=== PATIENT | female | born 1965 | race Caucasian/White ===

== ENCOUNTER 2019-08-18 08:24 | Emergency (ER) | payer BC, OTHER ==
--- NOTE | 2019-08-18 08:36 | EDM.PDOC ---
ED HPI GENERAL MEDICAL PROBLEM - General Stated Complaint: PSYCH EVAL Time Seen by Provider: 08/18/19 08:34 Source of Information: Reports: Patient - History of Present Illness INITIAL COMMENTS - FREE TEXT/NARRATIVE: HISTORY AND PHYSICAL: History of present illness: [Patient presents with suicidal ideation and plan to take her pills, she does have history of Parkinson's disease and anxiety/depression is on carbidopa levodopa as well's peroxide teen 40 mg] She states that she is a heavy drinker and gambler she was drinking last night she states she does not drink every day, she admits to drinking 6 Coors light drinks daily, eyes previous alcohol withdrawal symptoms, dates she does have periods where she does not have any alcohol for 4 to 5 days. Fever nausea vomiting chills sweats no chest pain shortness of breath headache dizziness palpitation no bowel or urine symptoms denies ingestion of her chronic medications at this time Review of systems: As per history of present illness and below otherwise all systems reviewed and negative. Past medical history: As per history of present illness and as reviewed below otherwise noncontributory. Surgical history: As per history of present illness and as reviewed below otherwise noncontributory. Social history: No reported history of drug or alcohol abuse. Family history: As per history of present illness and as reviewed below otherwise noncontributory. Physical exam: HEENT: Atraumatic, normocephalic, pupils reactive, negative for conjunctival pallor or scleral icterus, mucous membranes moist, throat clear, neck supple, nontender, trachea midline. Lungs: Clear to auscultation, breath sounds equal bilaterally, chest nontender. Heart: S1S2, regular, negative for clicks, rubs, or JVD. Abdomen: Soft, nondistended, nontender. Negative for masses or hepatosplenomegaly. Negative for costovertebral tenderness. Pelvis: Stable nontender. Genitourinary: Deferred. Rectal: Deferred. Extremities: Atraumatic, negative for cords or calf pain. Neurovascular unremarkable. Neuro: Awake, alert, oriented. Cranial nerves II through XII unremarkable. Cerebellum unremarkable. Motor and sensory unremarkable throughout. Exam nonfocal. Diagnostics: [BC CMP UA troponin drug screen alcohol level acetaminophen salicylate level TSH ] Therapeutics: ativan 2mg IV normalk saline ] Impression: [Suicidal ideation with plan chronic hx baseline mood disorder ] Definitive disposition and diagnosis as appropriate pending reevaluation and review of above. 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: , 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 (See Below) Other NURSING ATTENDANT History: tumor removal on ovary Musculoskeletal History: Reports: None Neurological History: Reports: None Psychiatric History: Reports: None Endocrine/Metabolic History: Reports: None Dermatologic History: Reports: None - Infectious Disease History Infectious Disease History: Reports: None - Past Surgical History Female Surgical History: Reports: Hysterectomy Social & Family History - Family History Family Medical History: Noncontributory ED ROS GENERAL - Review of Systems Review Of Systems: See Below ED EXAM, GENERAL - Physical Exam Exam: See Below Course - Vital Signs Last Recorded V/S: Last Vital Signs Temp 98.9 F 08/18/19 08:24 Pulse 103 H 08/18/19 10:19 Resp 16 08/18/19 10:19 BP 146/92 H 08/18/19 10:19 Pulse Ox 91 L 08/18/19 10:19 - Orders/Labs/Meds Orders: Active Orders 24 hr Category Date Time Status EKG Documentation Completion [RC] STAT Care 08/18/19 08:33 Active RT Aerosol Therapy [RC] ASDIRECTED Care 08/18/19 09:14 Active Labs: Laboratory Tests 08/18/19 08/18/19 08/18/19 Range/Units 08:36 08:36 08:45 WBC 5.94 (4.0-11.0) K/uL RBC 5.07 (4.30-5.90) M/uL Hgb 15.0 (12.0-16.0) g/dL Hct 43.5 (36.0-46.0) % MCV 85.8 (80.0-98.0) fL MCH 29.6 (27.0-32.0) pg MCHC 34.5 (31.0-37.0) g/dL RDW Std Deviation 44.0 (28.0-62.0) fl RDW Coeff of Kennedy 14 (11.0-15.0) % Plt Count 229 (150-400) K/uL MPV 9.50 (7.40-12.00) fL Neut % (Auto) 75.4 (48.0-80.0) % Lymph % (Auto) 17.7 (16.0-40.0) % [place] % (Auto) 4.5 (0.0-15.0) % Eos % (Auto) 2.2 (0.0-7.0) % Baso % (Auto) 0.2 (0.0-1.5) % Neut # (Auto) 4.5 (1.4-5.7) K/uL Lymph # (Auto) 1.1 (0.6-2.4) K/uL [place] # (Auto) 0.3 (0.0-0.8) K/uL Eos # (Auto) 0.1 (0.0-0.7) K/uL Baso # (Auto) 0.0 (0.0-0.1) K/uL Nucleated RBC % 0.0 /100WBC Nucleated RBCs # 0 K/uL INR Sodium (136-145) mmol/L Potassium (3.5-5.1) mmol/L Chloride (98-107) mmol/L Carbon Dioxide (21.0-32.0) mmol/L BUN (7.0-18.0) mg/dL Creatinine (0.6-1.0) mg/dL Est Cr Clr Drug Dosing Estimated GFR (MDRD) ml/min Glucose (74-106) mg/dL Calcium (8.5-10.1) mg/dL Total Bilirubin (0.2-1.0) mg/dL AST (15-37) IU/L ALT (14-63) IU/L Alkaline Phosphatase (46-116) U/L Troponin I (0.000-0.056) ng/mL Total Protein (6.4-8.2) g/dL Albumin (3.4-5.0) g/dL Globulin (2.6-4.0) g/dL Albumin/Globulin Ratio (0.9-1.6) TSH 3rd Generation (0.36-3.74) uIU/mL Urine Color YELLOW Urine Appearance HAZY Urine pH 5.0 (5.0-8.0) Ur Specific [place] 1.020 (1.001-1.035) Urine Protein NEGATIVE (NEGATIVE) mg/dL Urine Glucose (UA) NEGATIVE (NEGATIVE) mg/dL Urine Ketones NEGATIVE (NEGATIVE) mg/dL Urine Occult Blood TRACE-INTACT H (NEGATIVE) Urine Nitrite NEGATIVE (NEGATIVE) Urine Bilirubin NEGATIVE (NEGATIVE) Urine Urobilinogen 0.2 (<2.0) EU/dL Ur Leukocyte Esterase NEGATIVE (NEGATIVE) Urine RBC 0-1 (0-2/HPF) Urine WBC 0-1 (0-5/HPF) Ur Epithelial Cells FEW (NONE-FEW) Urine Bacteria FEW (NEGATIVE) Salicylates (0-20) mg/dL Urine Opiates Screen NEGATIVE (NEGATIVE) Ur Oxycodone Screen NEGATIVE (NEGATIVE) Urine Methadone Screen NEGATIVE (NEGATIVE) Acetaminophen ug/mL Ur Barbiturates Screen NEGATIVE (NEGATIVE) Ur Phencyclidine Scrn NEGATIVE (NEGATIVE) Ur Amphetamine Screen NEGATIVE (NEGATIVE) U Methamphetamines Scrn NEGATIVE (NEGATIVE) U Benzodiazepines Scrn NEGATIVE (NEGATIVE) U Cocaine Metab Screen NEGATIVE (NEGATIVE) U Marijuana (THC) Screen NEGATIVE (NEGATIVE) Ethyl Alcohol mg/dL 08/18/19 08/18/19 Range/Units 08:45 08:45 WBC (4.0-11.0) K/uL RBC (4.30-5.90) M/uL Hgb (12.0-16.0) g/dL Hct (36.0-46.0) % MCV (80.0-98.0) fL MCH (27.0-32.0) pg MCHC (31.0-37.0) g/dL RDW Std Deviation (28.0-62.0) fl RDW Coeff of Kennedy (11.0-15.0) % Plt Count (150-400) K/uL MPV (7.40-12.00) fL Neut % (Auto) (48.0-80.0) % Lymph % (Auto) (16.0-40.0) % [place] % (Auto) (0.0-15.0) % Eos % (Auto) (0.0-7.0) % Baso % (Auto) (0.0-1.5) % Neut # (Auto) (1.4-5.7) K/uL Lymph # (Auto) (0.6-2.4) K/uL [place] # (Auto) (0.0-0.8) K/uL Eos # (Auto) (0.0-0.7) K/uL Baso # (Auto) (0.0-0.1) K/uL Nucleated RBC % /100WBC Nucleated RBCs # K/uL INR 0.97 Sodium 141 (136-145) mmol/L Potassium 4.1 (3.5-5.1) mmol/L Chloride 103 (98-107) mmol/L Carbon Dioxide 26.6 (21.0-32.0) mmol/L BUN 9 (7.0-18.0) mg/dL Creatinine 0.8 (0.6-1.0) mg/dL Est Cr Clr Drug Dosing TNP Estimated GFR (MDRD) > 60.0 ml/min Glucose 105 (74-106) mg/dL Calcium 9.8 (8.5-10.1) mg/dL Total Bilirubin 0.4 (0.2-1.0) mg/dL AST 19 (15-37) IU/L ALT 30 (14-63) IU/L Alkaline Phosphatase 83 (46-116) U/L Troponin I < 0.050 (0.000-0.056) ng/mL Total Protein 8.0 (6.4-8.2) g/dL Albumin 4.0 (3.4-5.0) g/dL Globulin 4.0 (2.6-4.0) g/dL Albumin/Globulin Ratio 1.0 (0.9-1.6) TSH 3rd Generation 1.42 (0.36-3.74) uIU/mL Urine Color Urine Appearance Urine pH (5.0-8.0) Ur Specific [place] (1.001-1.035) Urine Protein (NEGATIVE) mg/dL Urine Glucose (UA) (NEGATIVE) mg/dL Urine Ketones (NEGATIVE) mg/dL Urine Occult Blood (NEGATIVE) Urine Nitrite (NEGATIVE) Urine Bilirubin (NEGATIVE) Urine Urobilinogen (<2.0) EU/dL Ur Leukocyte Esterase (NEGATIVE) Urine RBC (0-2/HPF) Urine WBC (0-5/HPF) Ur Epithelial Cells (NONE-FEW) Urine Bacteria (NEGATIVE) Salicylates 1.4 (0-20) mg/dL Urine Opiates Screen (NEGATIVE) Ur Oxycodone Screen (NEGATIVE) Urine Methadone Screen (NEGATIVE) Acetaminophen <2.0 ug/mL Ur Barbiturates Screen (NEGATIVE) Ur Phencyclidine Scrn (NEGATIVE) Ur Amphetamine Screen (NEGATIVE) U Methamphetamines Scrn (NEGATIVE) U Benzodiazepines Scrn (NEGATIVE) U Cocaine Metab Screen (NEGATIVE) U Marijuana (THC) Screen (NEGATIVE) Ethyl Alcohol 46 mg/dL Meds: Medications Discontinued Medications Generic Name Dose Route Start Last Admin Trade Name Freq PRN Reason Stop Dose Admin Albuterol/Ipratropium 3 ml 08/18/19 09:14 08/18/19 09:30 Duoneb 3.0-0.5 Mg/3 Ml NEB 08/18/19 09:15 3 ml ONETIME ONE Administration Lorazepam 2 mg 08/18/19 09:20 08/18/19 09:25 Ativan IVPUSH 08/18/19 09:21 2 mg ONETIME ONE Administration Lorazepam Confirm 08/18/19 09:20 08/18/19 09:25 Ativan Administered 08/18/19 09:21 Not Given Dose 2 mg .ROUTE .STK-MED ONE Departure - Departure Time of Disposition: 10:23 Disposition: DC/Tfer to Psych Hosp/Unit [facility] Condition: Fair Clinical Impression: Depressive disorder - Discharge Information Prescriptions: LORazepam [Lorazepam] 2 mg PO ONETIME #1 tablet Referrals: PCP,Unknown [Primary Care Provider] - Sepsis Event Note - Focused Exam Vital Signs: Vital Signs Temp Pulse Resp BP Pulse Ox 08/18/19 10:19 103 H 16 146/92 H 91 L 08/18/19 09:41 109 H 20 90 L 08/18/19 08:24 98.9 F 109 H 20 149/109 H 98 Date Exam was Performed: 08/18/19 Time Exam was Performed: 10:21 - My Orders Last 24 Hours: My Active Orders 08/18/19 08:33 EKG Documentation Completion [RC] STAT 08/18/19 09:14 RT Aerosol Therapy [RC] ASDIRECTED - Assessment/Plan Last 24 Hours: My Active Orders 08/18/19 08:33 EKG Documentation Completion [RC] STAT 08/18/19 09:14 RT Aerosol Therapy [RC] ASDIRECTED
[2019-08-18] MEDS ORDERED: Albuterol/Ipratropium 3.0-0.5 MG/3 ML Neb Soln NEB ONE (09:14)
[2019-08-18] MEDS ORDERED: LORazepam 2 MG/ML SDV ONE (09:20)
[2019-08-18] MEDS ORDERED: LORazepam 2 MG/ML SDV IVPUSH ONE (09:20)
[2019-08-18 09:34] LABS: ACETAMINOPHEN <2.0 ug/mL; BLOOD UREA NITROGEN,BUN 9 mg/dL (7.0-18.0); CARBON DIOXIDE,CO2 26.6 mmol/L (21.0-32.0); CHLORIDE,CL 103 mmol/L (98-107); GLUCOSE RANDOM 105 mg/dL (74-106); POTASSIUM,K 4.1 mmol/L (3.5-5.1); SODIUM,NA 141 mmol/L (136-145)
--- NOTE | 2019-08-18 09:49 | CR ---
Chest: Frontal view of the chest was obtained. Comparison: Prior chest x-ray of 06/25/14. Heart size and mediastinum are normal. Lungs are clear with no acute parenchymal change. Bony structures are grossly intact. Impression: 1. Nothing acute is appreciated on frontal chest x-ray. Diagnostic code #1 This report was dictated in [place] Standard Time
[2019-08-18 10:21] VITALS: BP 146/92; PULSE 103
== END 2019-08-18 11:45 ==
LOC: MW.ED 08:24
DX: F32.9 Major depressive disorder, single episode, unspecified (principal); G20 Parkinson's disease; F41.9 Anxiety disorder, unspecified; Z79.899 Other long term (current) drug therapy
CPT/HCPCS: 36415; 71045; 80053; 80305; 80320; 80329; 81001; 84443; 84484; 85025; 85610; 93005; 94640; 96374; 99285; J2060; 99283; G0480; J7620-GY

== ENCOUNTER 2020-05-13 21:56 | Emergency (ER) | payer BC ==
[2020-05-13] MEDS ORDERED: Sodium Chloride 0.9% 1,000 ML IV ONE (22:48)
--- NOTE | 2020-05-13 22:51 | EDM.PDOC ---
ED HPI GENERAL MEDICAL PROBLEM - General Chief Complaint: Drug or Alcohol Abuse Stated Complaint: REFER FROM POSION CONTROL Time Seen by Provider: 05/13/20 22:25 - History of Present Illness INITIAL COMMENTS - FREE TEXT/NARRATIVE: HISTORY AND PHYSICAL: History of present illness: This is a 54-year-old female who presents ER today secondary to ingestion of 4 Unisom tablets earlier today to help her sleep. Patient reports that she recently came off quarantine for coronavirus and indulge herself in drinking alcohol today. Patient reports that she started drinking at 2 PM. Patient estimates she drank approximately 6 beers. Patient ports this evening she was found asleep and was unable to get any rest so she took Unisom. Patient reports that she misread the label and thought that she was supposed to take 3 tablets instead of 1 tablet but instead took 4 tablets. Patient's was concerned and sent her to the ED for further evaluation secondary to the ingestion. Patient denies any suicidal ideation or suicide attempt. Patient denies any recent episodes of depression. Patient reports that approximate 1 year ago she was admitted for depression but denies any suicide attempt at that time. Patient reports that she does have a history of anxiety and she is currently on Paxil for her anxiety. Patient has any other symptomatology. Patient has any recent fevers, shakes, chills, nausea, vomiting, diarrhea, dysuria, frequency, urgency, chest pain, shortness of breath, URI symptoms. Review of systems: As per history of present illness and below otherwise all systems reviewed and negative. Past medical history: As per history of present illness and as reviewed below otherwise noncontributory. Surgical history: As per history of present illness and as reviewed below otherwise noncontributory. Social history: No reported history of drug or alcohol abuse. Family history: As per history of present illness and as reviewed below otherwise noncontributory. Physical exam: Constitutional: Patient is oriented to person, place, and time. Appears well- developed and well-nourished. No distress. HEENT: Moist mucous membranes Head: Normocephalic and atraumatic Eyes: Right eye exhibits no discharge. Left eye exhibits no discharge. No scleral icterus Neck: Normal range of motion. No tracheal deviation present. Cardiovascular: Normal rate and regular rhythm. Pulmonary: Effort normal, no respiratory distress. Abdominal: No distention Musculoskeletal: Normal range of motion Neurologic: Alert and oriented to person, place and time. Skin: [place], warm and dry. Psychiatric: Normal mood and affect. Behavior is normal. Judgment and thought content normal. Nursing note and vital signs have been reviewed Diagnostics: CBC, CMP, EKG, alcohol level, salicylate, Tylenol Therapeutics: 1 L normal saline. Assessment and plan: This is a 54-year-old female who presents ER today secondary to accidental ingestion of Unisom. Patient be monitored in the ED. EKG will be obtained as well as labs. I will discuss with the regarding any concerns he has towards suicidality. Discussed case with patient's Dereje at [phone], reports that he has no concerns regarding suicidality. Reports that he and his got into an argument earlier today and he was upset at her because of gambling and drinking issues. He reports that she had lost a substantial amount of money and that she knew that he was upset at her. He reports no concerns regarding patient doing intentional overdose. He reports pill count of only for missing pills and no other concerns regarding other pills or ingestions. Patient has been reports that he brought her into the ER today not secondary to suicidality concerns or depression concerns but because when he spoke to poison control he was concerned regarding respiratory issues that they alerted him to. 12:10 AM: Patient be monitored in the ER for over 2 hours and has remained stable. Patient's respiratory status is unremarkable. Patient's pulse ox is 95% on room air. Patient is easily arousable but resting comfortably in bed. Patient be monitored in the ER for total of 3 hours and will be discharged home with . Reassessment at the time of disposition demonstrates that the patient is in no acute distress. The patient has remained stable throughout the entire ED visit and is without objective evidence for acute process requiring urgent intervention or hospitalization. The patient is stable for discharge, counseling is provided as documented above, discussed symptomatic treatment and specific conditions for return. I have spoken with the patient/caregiver and discussed todays findings, in addition to providing specific details for the plan of care. Questions are answered and there is agreement with the plan. Definitive disposition and diagnosis as appropriate pending reevaluation and review of above. 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 (See Below) 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 CASE RECORDS SUPERVISOR History: tumor removal on ovary Musculoskeletal History: Reports: None Neurological History: Reports: None, Parkinson's Psychiatric History: Reports: None, Anxiety Endocrine/Metabolic History: Reports: None Dermatologic History: Reports: None - Infectious Disease History Infectious Disease History: Reports: Chicken Pox - Past Surgical History Female Surgical History: Reports: Hysterectomy Social & Family History - Family History Family Medical History: Noncontributory - Caffeine Use Caffeine Use: Reports: None - Recreational Drug Use Recreational Drug Use: No ED ROS GENERAL - Review of Systems Review Of Systems: See Below ED EXAM, GENERAL - Physical Exam Exam: See Below #1 Interpretation EKG Interpretation Comments: EKG: Normal sinus rhythm heart rate of [address]-T wave abnormalities Normal axis No evidence of ST elevation [place] As interpreted by ER physician: Martha Course - Vital Signs Last Recorded V/S: Last Vital Signs Temp 99.1 F 05/13/20 22:20 Pulse 67 05/13/20 22:20 Resp 18 05/13/20 22:20 BP 142/84 H 05/13/20 22:20 Pulse Ox 93 L 05/13/20 22:20 - Orders/Labs/Meds Orders: Active Orders 24 hr Category Date Time Status EKG Documentation Completion [RC] AM Care 05/13/20 22:46 Active Saline Lock Insert [OM.PC] Stat Oth 05/13/20 22:48 Ordered Labs: Laboratory Tests 05/13/20 05/13/20 05/13/20 Range/Units 22:45 23:18 23:18 WBC 5.36 (4.0-11.0) K/uL RBC 4.93 (4.30-5.90) M/uL Hgb 14.9 (12.0-16.0) g/dL Hct 43.1 (36.0-46.0) % MCV 87.4 (80.0-98.0) fL MCH 30.2 (27.0-32.0) pg MCHC 34.6 (31.0-37.0) g/dL RDW Std Deviation 44.0 (28.0-62.0) fl RDW Coeff of Kennedy 14 (11.0-15.0) % Plt Count 207 (150-400) K/uL MPV 9.60 (7.40-12.00) fL Neut % (Auto) 53.2 (48.0-80.0) % Lymph % (Auto) 38.8 (16.0-40.0) % [place] % (Auto) 5.4 (0.0-15.0) % Eos % (Auto) 2.2 (0.0-7.0) % Baso % (Auto) 0.4 (0.0-1.5) % Neut # (Auto) 2.9 (1.4-5.7) K/uL Lymph # (Auto) 2.1 (0.6-2.4) K/uL [place] # (Auto) 0.3 (0.0-0.8) K/uL Eos # (Auto) 0.1 (0.0-0.7) K/uL Baso # (Auto) 0.0 (0.0-0.1) K/uL Nucleated RBC % 0.0 /100WBC Nucleated RBCs # 0 K/uL Sodium 144 (136-145) mmol/L Potassium 3.7 (3.5-5.1) mmol/L Chloride 105 (98-107) mmol/L Carbon Dioxide 28.0 (21.0-32.0) mmol/L BUN 10 (7.0-18.0) mg/dL Creatinine 0.7 (0.6-1.0) mg/dL Est Cr Clr Drug Dosing 78.41 mL/min Estimated GFR (MDRD) > 60.0 ml/min Glucose 102 (74-106) mg/dL Calcium 9.5 (8.5-10.1) mg/dL Total Bilirubin 0.3 (0.2-1.0) mg/dL AST 22 (15-37) IU/L ALT 30 (14-63) IU/L Alkaline Phosphatase 76 (46-116) U/L Total Protein 6.8 (6.4-8.2) g/dL Albumin 4.0 (3.4-5.0) g/dL Globulin 2.8 (2.6-4.0) g/dL Albumin/Globulin Ratio 1.4 (0.9-1.6) Salicylates 0.8 (0-20) mg/dL Urine Opiates Screen NEGATIVE (NEGATIVE) Ur Oxycodone Screen NEGATIVE (NEGATIVE) Urine Methadone Screen NEGATIVE (NEGATIVE) Acetaminophen <2.0 ug/mL Ur Barbiturates Screen NEGATIVE (NEGATIVE) Ur Phencyclidine Scrn NEGATIVE (NEGATIVE) Ur Amphetamine Screen NEGATIVE (NEGATIVE) U Methamphetamines Scrn NEGATIVE (NEGATIVE) U Benzodiazepines Scrn NEGATIVE (NEGATIVE) U Cocaine Metab Screen NEGATIVE (NEGATIVE) U Marijuana (THC) Screen NEGATIVE (NEGATIVE) Ethyl Alcohol 133 mg/dL Meds: Medications Discontinued Medications Generic Name Dose Route Start Last Admin Trade Name Freq PRN Reason Stop Dose Admin Sodium Chloride 1,000 mls @ 999 mls/hr 05/13/20 22:48 05/13/20 23:00 Normal Saline IV 05/13/20 23:48 999 mls/hr .Bolus ONE Administration Departure - Departure Time of Disposition: 00:50 Disposition: Home, Self-Care 01 Condition: Good Clinical Impression: Alcohol intoxication, Accidental drug ingestion, Accidental overdose - Discharge Information Instructions: Alcohol Use Disorder, Alcohol Intoxication, [id number], Preventing Poisoning, Adult Referrals: PCP,None [Primary Care Provider] - Forms: ED Department Discharge Additional Instructions: You were seen and evaluated in the ER today secondary to ingesting 4 Unisom tablets. Please take medication only as directed. Your alcohol level was 137. You need to talk to your doctor regarding possible diagnosis of alcohol use disorder. The following information is given to patients seen in the emergency department who are being discharged to home. This information is to outline your options for follow-up care. We provide all patients seen in our emergency department with a follow-up referral. The need for follow-up, as well as the timing and circumstances, are variable depending upon the specifics of your emergency department visit. If you don't have a primary care physician on staff, we will provide you with a referral. We always advise you to contact your personal physician following an emergency department visit to inform them of the circumstance of the visit and for follow-up with them and/or the need for any referrals to a consulting specialist. The emergency department will also refer you to a specialist when appropriate. This referral assures that you have the opportunity for follow-up care with a specialist. All of these measure are taken in an effort to provide you with optimal care, which includes your follow-up. Under all circumstances we always encourage you to contact your private physician who remains a resource for coordinating your care. When calling for follow-up care, please make the office aware that this follow-up is from your recent emergency room visit. If for any reason you are refused follow-up, please contact the [facility] Emergency Department at and asked to speak to the emergency department charge nurse. Sepsis Event Note (ED) - Evaluation Sepsis Screening Result: No Definite Risk - Focused Exam Vital Signs: Vital Signs Temp Pulse Resp BP Pulse Ox 05/13/20 22:20 99.1 F 67 18 142/84 H 93 L - My Orders Last 24 Hours: My Active Orders 05/13/20 22:46 EKG Documentation Completion [RC] AM 05/13/20 22:48 Saline Lock Insert [OM.PC] Stat - Assessment/Plan Last 24 Hours: My Active Orders 05/13/20 22:46 EKG Documentation Completion [RC] AM 05/13/20 22:48 Saline Lock Insert [OM.PC] Stat
[2020-05-13 23:56] LABS: BLOOD UREA NITROGEN,BUN 10 mg/dL (7.0-18.0); CHLORIDE,CL 105 mmol/L (98-107); GLUCOSE RANDOM 102 mg/dL (74-106); POTASSIUM,K 3.7 mmol/L (3.5-5.1); SODIUM,NA 144 mmol/L (136-145)
[2020-05-13 23:57] LABS: ACETAMINOPHEN <2.0 ug/mL
[2020-05-14 01:12] VITALS: BP 127/70; PULSE 76
== END 2020-05-14 00:45 | disposition home or self-care (01) ==
LOC: MW.ED 21:56
DX: T45.0X1A Poisoning by antiallergic and antiemetic drugs, accidental (unintentional), initial encounter (principal); G20 Parkinson's disease; F10.129 Alcohol abuse with intoxication, unspecified; F41.9 Anxiety disorder, unspecified; Z79.899 Other long term (current) drug therapy; Y90.6 Blood alcohol level of 120-199 mg/100 ml
CPT/HCPCS: 36415; 80053; 80305; 80307; 85025; 93005; 99284; J7030; 93010; 99283

== ENCOUNTER 2023-08-27 13:23 | Emergency (ER) | payer BC ==
[2023-08-27] MEDS: Acetaminophen/HYDROcodone 325-10 MG Tab PO ONE (14:33)
[2023-08-27 15:18] VITALS: BP 126/76; PULSE 81
== END 2023-08-27 15:15 | disposition home or self-care (01) ==
LOC: MW.ED 13:23
DX: M79.652 Pain in left thigh (principal); M79.662 Pain in left lower leg; G60.9 Hereditary and idiopathic neuropathy, unspecified; Z90.710 Acquired absence of both cervix and uterus
CPT/HCPCS: 99283; A9270

== ENCOUNTER 2024-08-16 19:18 | Inpatient (IN) | payer BC ==
[2024-08-16 19:39] LABS: BASOPHILS ABSOLUTE AUTO 0.02 K/uL (0.00-0.20); BASOPHILS PERCENT AUTO 0.3 % (0.0-1.0); EOSINOPHILS ABSOLUTE AUTO 0.11 K/uL (0.00-0.45); EOSINOPHILS PERCENT AUTO 1.9 % (0.0-6.0); HEMATOCRIT 44.1 % (37.0-47.0); HEMOGLOBIN 15.2 g/dL (12.0-16.0); IMMATURE GRAN ABSOLUTE AUTO 0.01 K/uL (0.00-0.05); IMMATURE GRAN PERCENT AUTO 0.2 % (0.0-0.4); LYMPHOCYTES ABSOLUTE AUTO 1.54 K/uL (1.00-4.80); LYMPHOCYTES PERCENT AUTO 26.2 % (24.0-44.0); MEAN CORPUSCULAR HEMOGLOBIN 28.7 pg (28.0-32.0); MEAN CORPUSCULAR HGB CONC 34.5 g/dL (32.0-36.0); MEAN CORPUSCULAR VOLUME 83.2 fL (83.0-99.0); MEAN PLATELET VOLUME 10.3 fL (9.4-12.3); MONOCYTES ABSOLUTE AUTO 0.24 K/uL (0.00-0.80); MONOCYTES PERCENT AUTO 4.1 % (0.0-8.0); NEUTROPHILS ABSOLUTE AUTO 3.95 K/uL (1.80-7.70); NEUTROPHILS PERCENT AUTO 67.3 % (41.0-71.0); PLATELET COUNT,PLT 206 K/uL (150-400); WHITE BLOOD CELL COUNT,WBC 5.87 K/uL (3.9-11.3)
[2024-08-16] MEDS: Pantoprazole 40 MG in Sodium Chloride 0.9% 10 ML IVPUSH ONE (20:02)
[2024-08-16] MEDS: Alum Hydrox/Mag Hydrox/Simeth 15 ML, Lidocaine 2% 5 ML PO ONE (20:02)
[2024-08-16] MEDS: Sodium Chloride 0.9% 10 ML Syringe FLUSH PRN (20:04)
[2024-08-16] MEDS: Sodium Chloride 0.9% 2.5 ML Syringe FLUSH PRN (20:04)
[2024-08-16 20:05] LABS: A/G RATIO 1.2 (0.9-1.6); ALANINE AMINOTRANSFERASE,ALT 17 IU/L (14-63); ALBUMIN 4.1 g/dL (3.4-5.0); ALKALINE PHOSPHATASE 94 U/L (46-116); ASPARTATE AMNIOTRANSFERASE,AST 70 IU/L (15-37); BLOOD UREA NITROGEN,BUN 12 mg/dL (7.0-18.0); CALCIUM 9.9 mg/dL (8.5-10.1); CARBON DIOXIDE,CO2 27.4 mmol/L (21.0-32.0); CHLORIDE,CL 104 mmol/L (98-107); GLUCOSE RANDOM 91 mg/dL (74-106); POTASSIUM,K 3.5 mmol/L (3.5-5.1); PROTEIN TOTAL,TP 7.5 g/dL (6.4-8.2); SODIUM,NA 141 mmol/L (136-145)
[2024-08-16 20:06] LABS: ESTIMATED GFR 64 mL/min (>60)
[2024-08-16] MEDS: Iopamidol 755 MG/ML 500 ML Multipack Bottle IVPUSH ONE (21:16)
[2024-08-16] MEDS: Ketorolac 30 MG/ML SDV IVPUSH ONE (21:42)
[2024-08-16] MEDS: Morphine 4 MG/ML Syringe IVPUSH ONE (22:25)
[2024-08-16 23:30] LABS: LIPASE 9751 U/L (16-77)
[2024-08-16] MEDS: HYDROmorphone 1 MG/ML Syringe IVPUSH ONE (23:52)
[2024-08-16] MEDS: Ondansetron 4 MG/2 ML SDV IVPUSH ONE (23:52)
[2024-08-17] MEDS: Sodium Chloride 0.9% 1,000 ML IV SCH (02:01)
[2024-08-17] MEDS: Acetaminophen 325 MG Tab PO PRN (06:28)
[2024-08-17 07:51] LABS: BASOPHILS ABSOLUTE AUTO 0.01 K/uL (0.00-0.20); BASOPHILS PERCENT AUTO 0.2 % (0.0-1.0); EOSINOPHILS ABSOLUTE AUTO 0.04 K/uL (0.00-0.45); EOSINOPHILS PERCENT AUTO 0.7 % (0.0-6.0); HEMATOCRIT 43.9 % (37.0-47.0); HEMOGLOBIN 14.7 g/dL (12.0-16.0); IMMATURE GRAN ABSOLUTE AUTO 0.02 K/uL (0.00-0.05); IMMATURE GRAN PERCENT AUTO 0.3 % (0.0-0.4); LYMPHOCYTES ABSOLUTE AUTO 0.59 K/uL (1.00-4.80); LYMPHOCYTES PERCENT AUTO 9.7 % (24.0-44.0); MEAN CORPUSCULAR HEMOGLOBIN 28.4 pg (28.0-32.0); MEAN CORPUSCULAR HGB CONC 33.5 g/dL (32.0-36.0); MEAN CORPUSCULAR VOLUME 84.9 fL (83.0-99.0); MEAN PLATELET VOLUME 10.6 fL (9.4-12.3); MONOCYTES ABSOLUTE AUTO 0.29 K/uL (0.00-0.80); MONOCYTES PERCENT AUTO 4.8 % (0.0-8.0); NEUTROPHILS ABSOLUTE AUTO 5.13 K/uL (1.80-7.70); NEUTROPHILS PERCENT AUTO 84.3 % (41.0-71.0); PLATELET COUNT,PLT 161 K/uL (150-400); RED BLOOD CELL COUNT 5.17 M/uL (4.10-5.30); WHITE BLOOD CELL COUNT,WBC 6.08 K/uL (3.9-11.3)
[2024-08-17] MEDS ORDERED: Melatonin 3 MG Tab PO PRN (07:54)
[2024-08-17] MEDS ORDERED: Ibuprofen 600 MG Tab PO PRN (07:54)
[2024-08-17] MEDS ORDERED: Polyethylene Glycol 3350 Powder 17 GM Packet PO PRN (07:54)
[2024-08-17] MEDS ORDERED: Ketorolac 30 MG/ML SDV IM PRN (07:54)
[2024-08-17] MEDS ORDERED: Sennosides/Docusate Sodium 50-8.6 MG Tab PO PRN (07:54)
[2024-08-17] MEDS ORDERED: Morphine 2 MG/ML SYRINGE IVPUSH PRN (07:54)
[2024-08-17] MEDS: Carbidopa/Levodopa 25-100 MG Tab PO SCH ×2 (08:19→13:54)
[2024-08-17] MEDS: Baclofen 10 MG Tab PO SCH ×2 (08:19→13:54)
[2024-08-17 08:25] LABS: CALCIUM 9.4 mg/dL (8.5-10.1); CARBON DIOXIDE,CO2 25.5 mmol/L (21.0-32.0); EST CRCL DRUG DOSING (CG) 51.66 mL/min; POTASSIUM,K 4.3 mmol/L (3.5-5.1)
[2024-08-17] MEDS: Pregabalin 75 MG Cap PO SCH (08:36)
[2024-08-17] MEDS: MELOXICAM 15 MG PO SCH (08:46)
[2024-08-17] MEDS ORDERED: PARoxetine 20 MG Tab PO SCH (09:00)
[2024-08-17] MEDS ORDERED: Naloxone 0.4 MG/ML SDV IVPUSH PRN (10:00)
[2024-08-17] MEDS: HYDROmorphone 1 MG/ML Syringe IVPUSH PRN (11:53)
[2024-08-17] MEDS: PARoxetine 20 MG Tab PO SCH (13:54)
[2024-08-17] MEDS: Pantoprazole 40 MG Tab.CR PO SCH (16:17)
[2024-08-17] MEDS: 50% Dextrose in Water 50 ML Syringe IVPUSH ONE (16:17)
[2024-08-17] MEDS: Dextrose 5%-0.45% NaCl 1,000 ML IV SCH (17:43)
[2024-08-18 06:22] LABS: BASOPHILS ABSOLUTE AUTO 0.01 K/uL (0.00-0.20); BASOPHILS PERCENT AUTO 0.1 % (0.0-1.0); EOSINOPHILS ABSOLUTE AUTO 0.06 K/uL (0.00-0.45); EOSINOPHILS PERCENT AUTO 0.7 % (0.0-6.0); HEMATOCRIT 40.2 % (37.0-47.0); HEMOGLOBIN 13.6 g/dL (12.0-16.0); IMMATURE GRAN ABSOLUTE AUTO 0.02 K/uL (0.00-0.05); IMMATURE GRAN PERCENT AUTO 0.2 % (0.0-0.4); LYMPHOCYTES ABSOLUTE AUTO 0.76 K/uL (1.00-4.80); LYMPHOCYTES PERCENT AUTO 9.5 % (24.0-44.0); MEAN CORPUSCULAR HEMOGLOBIN 28.8 pg (28.0-32.0); MEAN CORPUSCULAR HGB CONC 33.8 g/dL (32.0-36.0); MEAN CORPUSCULAR VOLUME 85.2 fL (83.0-99.0); MONOCYTES ABSOLUTE AUTO 0.54 K/uL (0.00-0.80); MONOCYTES PERCENT AUTO 6.7 % (0.0-8.0); NEUTROPHILS ABSOLUTE AUTO 6.63 K/uL (1.80-7.70); NEUTROPHILS PERCENT AUTO 82.8 % (41.0-71.0); PLATELET COUNT,PLT 121 K/uL (150-400); RED BLOOD CELL COUNT 4.72 M/uL (4.10-5.30); WHITE BLOOD CELL COUNT,WBC 8.02 K/uL (3.9-11.3)
[2024-08-18 06:42] LABS: CALCIUM 8.9 mg/dL (8.5-10.1); CARBON DIOXIDE,CO2 22.8 mmol/L (21.0-32.0); CREATININE 0.8 mg/dL (0.6-1.0); EST CRCL DRUG DOSING (CG) 64.58 mL/min; POTASSIUM,K 3.9 mmol/L (3.5-5.1)
[2024-08-18] MEDS: Pregabalin 75 MG Cap PO SCH (08:07)
[2024-08-18] MEDS: Ondansetron 4 MG/2 ML SDV IVPUSH PRN (13:07)
[2024-08-19 05:55] LABS: BASOPHILS ABSOLUTE AUTO 0.01 K/uL (0.00-0.20); BASOPHILS PERCENT AUTO 0.1 % (0.0-1.0); EOSINOPHILS ABSOLUTE AUTO 0.17 K/uL (0.00-0.45); EOSINOPHILS PERCENT AUTO 2.1 % (0.0-6.0); HEMATOCRIT 35.4 % (37.0-47.0); IMMATURE GRAN ABSOLUTE AUTO 0.02 K/uL (0.00-0.05); IMMATURE GRAN PERCENT AUTO 0.2 % (0.0-0.4); LYMPHOCYTES ABSOLUTE AUTO 0.71 K/uL (1.00-4.80); LYMPHOCYTES PERCENT AUTO 8.6 % (24.0-44.0); MEAN CORPUSCULAR HEMOGLOBIN 28.6 pg (28.0-32.0); MEAN CORPUSCULAR HGB CONC 33.9 g/dL (32.0-36.0); MEAN CORPUSCULAR VOLUME 84.5 fL (83.0-99.0); MEAN PLATELET VOLUME 10.6 fL (9.4-12.3); MONOCYTES ABSOLUTE AUTO 0.49 K/uL (0.00-0.80); MONOCYTES PERCENT AUTO 5.9 % (0.0-8.0); NEUTROPHILS ABSOLUTE AUTO 6.86 K/uL (1.80-7.70); NEUTROPHILS PERCENT AUTO 83.1 % (41.0-71.0); PLATELET COUNT,PLT 132 K/uL (150-400); RED BLOOD CELL COUNT 4.19 M/uL (4.10-5.30); WHITE BLOOD CELL COUNT,WBC 8.26 K/uL (3.9-11.3)
[2024-08-19 06:30] LABS: CALCIUM 8.6 mg/dL (8.5-10.1); CARBON DIOXIDE,CO2 24.9 mmol/L (21.0-32.0); CREATININE 0.9 mg/dL (0.6-1.0); EST CRCL DRUG DOSING (CG) 57.4 mL/min; POTASSIUM,K 3.3 mmol/L (3.5-5.1)
[2024-08-19] MEDS: Potassium Chloride 20 MEQ Tab.ER PO ONE (07:59)
[2024-08-19 16:38] VITALS: BP 132/84; PULSE 81
== END 2024-08-19 16:02 | disposition home or self-care (01) | DRG 282 ==
LOC: MW.ED 19:18 → MW.MS 08-17 01:07 → OBSVTOIN 08-17 12:04
PROVIDERS: ADMIT Family Medicine; ATTEND Family Medicine
DX: K85.30 Drug induced acute pancreatitis without necrosis or infection (principal); F41.9 Anxiety disorder, unspecified; G20.A1 Parkinson's disease without dyskinesia, without mention of fluctuations; M19.90 Unspecified osteoarthritis, unspecified site; E66.9 Obesity, unspecified; Z90.710 Acquired absence of both cervix and uterus; Z79.899 Other long term (current) drug therapy; Z98.890 Other specified postprocedural states; Z68.41 Body mass index [BMI] 40.0-44.9, adult
CPT/HCPCS: 36415; 71275; 71275-26; 80048; 80053; 82947; 83690; 84484; 85025; 85379; 93005; 93010; 96374; 96375; 96376; 99283; 99285-25; A9270-GY; G0378; J1171; J1885; J2270; J2405; J2470; J3490; J7030; J7799; Q9967